=== PATIENT | female | born 1955 | race Caucasian/White ===

== ENCOUNTER 2019-10-05 11:10 | Emergency (ER) | payer SELFPAY ==
[~2019-10-05] VITALS: Ht 157.5 cm; Wt 86.6 kg
[2019-10-05 11:18] VITALS: Ht 157.5 cm; Wt 86.6 kg
[2019-10-05 12:30] VITALS: BP 121/74
== END 2019-10-05 12:30 | disposition home or self-care (01) ==
LOC: ED 11:10
DX: M54.42 Lumbago with sciatica, left side (principal); J45.909 Unspecified asthma, uncomplicated; Z85.3 Personal history of malignant neoplasm of breast
CPT/HCPCS: J1885